=== PATIENT | female | born 1975 | race Caucasian/White ===

== ENCOUNTER 2024-05-01 19:13 | Emergency (ER) | payer SELFPAY ==
[2024-05-01] MEDS ORDERED: Methocarbamol 500 MG TAB ONE (19:56)
[2024-05-01] MEDS ORDERED: HYDROcodone/Acetaminophen 5/325 mg Tablet ONE (19:56)
== END 2024-05-01 20:43 | disposition home or self-care (01) ==
LOC: ERS 19:13
DX: M54.42 Lumbago with sciatica, left side (principal); I10 Essential (primary) hypertension; F17.210 Nicotine dependence, cigarettes, uncomplicated

== ENCOUNTER 2024-06-24 14:05 | Emergency (ER) | payer OTHER, SELFPAY ==
[2024-06-24] MEDS ORDERED: Dexamethasone 10 MG/ML VIAL ONE (15:46)
[2024-06-24] MEDS ORDERED: Ketorolac Tromethamine 30 MG (1 mL) VIAL ONE (15:46)
== END 2024-06-24 16:14 | disposition home or self-care (01) ==
LOC: ERS 14:05
DX: M54.42 Lumbago with sciatica, left side (principal); M25.561 Pain in right knee; I10 Essential (primary) hypertension; F17.210 Nicotine dependence, cigarettes, uncomplicated
CPT/HCPCS: 96372; 99283; J1100; J1885